=== PATIENT | female | born 1960 | race Two or more races ===

== ENCOUNTER 2018-12-22 20:04 | Inpatient (IN) | payer SELFPAY ==
[~2018-12-22] VITALS: Ht 160 cm; Wt 77.4 kg
[2018-12-22 22:33] LABS: Basophils # (auto) 0 uL; Basophils % (auto) 0.4 % (0.0-2.0); Eosinophils # (auto) 0 uL; Eosinophils % (auto) 0.4 % (0.0-7.0); Hematocrit 32.9 % (36.0-46.0); Hemoglobin 10.8 g/dL (12.2-16.2); Lymphocytes # (auto) 1.4 uL; Lymphocytes % (auto) 13.1 % (10.0-50.0); Mean Corpuscular Hemoglobin 28.4 pg (28.0-32.0); Mean Corpuscular Hgb Conc. 32.9 g/dL (32.0-36.0); Mean Corpuscular Volume 86.2 fL (80.0-100.0); Monocytes # (auto) 0.5 uL; Monocytes % (auto) 4.8 % (0.0-12.0); Neutrophils # (auto) 8.6 uL; Neutrophils % (auto) 81.3 % (37.0-80.0); Platelet Count (auto) 264 10^3/uL (140-450); Red Blood Cells 3.82 10^6/uL (4.0-5.20); Red Cell Distribution Width 14.9 % (11.8-14.3); White Blood Cell 10.5 10^3/uL (4.4-10.8)
[2018-12-22 22:44] LABS: Anion Gap 2 (5-15); Blood Urea Nitrogen 34 mg/dL (7-18); Calcium 8.2 mg/dL (8.5-10.1); Carbon Dioxide 25 mmol/L (21-32); Chloride 114 mmol/L (98-107); Glucose 123 mg/dL (74-106); Potassium 4.7 mmol/L (3.5-5.1); Sodium 141 mmol/L (136-145)
[2018-12-22 22:52] LABS: Alanine Aminotransferase 130 U/L (13-56); Alkaline Phosphatase 177 U/L (45-117); Amylase 27 U/L (25-115); Aspartate Aminotransferase 36 U/L (15-37); BUN/Creatinine Ratio 58.6; Bilirubin, Total 0.5 mg/dL (0.2-1.0); GFR African American 137 mL/min; GFR Non-African American 113 mL/min; Lipase 61 U/L (73-393); Total Protein 6.3 g/dL (6.4-8.2)
[2018-12-23] MEDS ORDERED: PANTOPRAZOLE 40 MG/10 ML VIAL IV ONE (00:15)
[2018-12-23] MEDS ORDERED: ONDANSETRON HCL 4 MG/2 ML VIAL IV PRN (00:45)
[2018-12-23] MEDS: SODIUM CHLORIDE 0.9% 1,000 ML IV SCH ×2 (01:00→14:09)
[2018-12-23 01:36] LABS: Hematocrit 32.5 % (36.0-46.0); Hemoglobin 10.7 g/dL (12.2-16.2)
[2018-12-23] MEDS ORDERED: PANTOPRAZOLE 40 MG/10 ML VIAL IV SCH (07:30)
--- NOTE | 2018-12-23 16:33 | NUR ---
Med-surg admit from ER [facility] admitted to Medsurg unit after SBAR received. Patient oriented to Marleny Duque, primary RN, unit, room, bed, and unit policies regarding patient care and visiting hours. Patient placed on bedside oxygen, weighed by bed scale and encouraged to call if they need something. All questions and concerns addressed, patient verbalized understanding.
[2018-12-23 17:00] VITALS: BP 104/49
--- NOTE | 2018-12-23 19:10 | NUR ---
Patient comfortably resting, no s/s of distress/sob noted/stated. Care endorsed to NOC RN.
--- NOTE | 2018-12-23 19:43 | NUR ---
Opening Shift Note Assumed care of patient, awake and alert. No S/S of distress/SOB or pain. Pt is currently laying in bed with the rails up x2. The bed is locked in the lowest position and the call light is within reach. Instructed on POC and to call for assist as needed. Pt has a 20ga IV in the left AC that flushes without discomfort. Will continue to monitor.
[2018-12-23] MEDS: PANTOPRAZOLE 40 MG/10 ML VIAL IV SCH (21:40)
[2018-12-23 21:53] VITALS: BP 105/54
[2018-12-24] VITALS (7 sets, daily range): BP systolic 101–114; BP diastolic 51–77
[2018-12-24] MEDS: SODIUM CHLORIDE 0.9% 1,000 ML IV SCH (03:40)
[2018-12-24 07:08] LABS: Basophils # (auto) 0.1 uL; Basophils % (auto) 1.9 % (0.0-2.0); Eosinophils # (auto) 0.2 uL; Eosinophils % (auto) 3.5 % (0.0-7.0); Hematocrit 25.9 % (36.0-46.0); Hemoglobin 8.8 g/dL (12.2-16.2); Lymphocytes # (auto) 1.6 uL; Lymphocytes % (auto) 33.8 % (10.0-50.0); Mean Corpuscular Hemoglobin 29.2 pg (28.0-32.0); Mean Corpuscular Volume 85.9 fL (80.0-100.0); Monocytes # (auto) 0.4 uL; Monocytes % (auto) 8.7 % (0.0-12.0); Neutrophils # (auto) 2.5 uL; Neutrophils % (auto) 52.1 % (37.0-80.0); Platelet Count (auto) 219 10^3/uL (140-450); Red Blood Cells 3.02 10^6/uL (4.0-5.20); Red Cell Distribution Width 14.8 % (11.8-14.3); White Blood Cell 4.8 10^3/uL (4.4-10.8)
[2018-12-24 07:10] LABS: INR 0.96 (0.9-1.15); Prothrombin Time 10.3 sec (9.27-12.13)
[2018-12-24 07:16] LABS: Albumin 2.8 g/dL (3.4-5.0); Bilirubin, Direct 0.4 mg/dL (0-0.2); Bilirubin, Total 0.6 mg/dL (0.2-1.0); Magnesium 2.1 mg/dL (1.6-2.6); Total Protein 5.8 g/dL (6.4-8.2)
[2018-12-24 07:22] LABS: BUN/Creatinine Ratio 32.7; Calcium 8.4 mg/dL (8.5-10.1); Potassium 3.7 mmol/L (3.5-5.1)
[2018-12-24] MEDS: PANTOPRAZOLE 40 MG/10 ML VIAL IV SCH (09:55)
--- NOTE | 2018-12-24 13:20 | NUR ---
Patient down to OR for procedure.
[2018-12-24] MEDS ORDERED: diphenhdrAMINE HCL 50 MG/1 ML VL ONE (13:27)
[2018-12-24] MEDS ORDERED: LIDOCAINE VISCOUS 2% 15ML UD ONE (13:27)
[2018-12-24] MEDS: fentaNYL CITRATE 100 MCG/2 ML VL ONE ×2 (13:29→13:32)
[2018-12-24] MEDS: MIDAZOLAM HCL 5 MG/ML-1ML VIAL ONE ×2 (13:29→13:32)
--- NOTE | 2018-12-24 14:22 | NUR ---
Patient back to med surg floor.
--- NOTE | 2018-12-24 20:00 | NUR ---
Patient c/o of right lower pain, patient states " this pain is new started right after dinner" Patient will notify me if pain becomes severe. Will continue to monitor. Addendum: 12/25/18 at 0024 by Marleny Duque RN Patient c/o pain escalating. No active orders for pain medication. [facility] Hospitalist. Provided patient with a heating pad. Will continue to monitor.
[2018-12-24] MEDS: PANTOPRAZOLE 40 MG TAB PO SCH (22:07)
--- NOTE | 2018-12-25 01:35 | NUR ---
BILLY Conte gave orders for 2mg morphine IV once, Tylenol 500mg Q6h prn. Orders read back and verified.
[2018-12-25] MEDS ORDERED: MORPHINE SULF INJ 2 MG/ML SYRINGE 1ML IV ONE (01:45)
[2018-12-25] MEDS ORDERED: ACETAMINOPHEN 500 MG TAB PO PRN (01:45)
[2018-12-25] MEDS: SODIUM CHLORIDE 0.9% 1,000 ML IV SCH ×2 (01:57→06:05)
--- NOTE | 2018-12-25 03:30 | NUR ---
HANDOFF: Received report from INDIRA Cavanaugh. Assumed care of patient. Patient sleeping. Bed in lowest position, rails x2 up and call light within reach.
[2018-12-25 05:11] VITALS: BP 117/60
[2018-12-25 06:22] LABS: Hematocrit 25.6 % (36.0-46.0); Hemoglobin 8.5 g/dL (12.2-16.2)
[2018-12-25 06:35] LABS: Albumin 2.7 g/dL (3.4-5.0)
[2018-12-25 06:39] LABS: Bilirubin, Direct 0.3 mg/dL (0-0.2); Bilirubin, Total 0.4 mg/dL (0.2-1.0); Total Protein 5.6 g/dL (6.4-8.2)
[2018-12-25 09:00] VITALS: BP 120/62
[2018-12-25] MEDS: PANTOPRAZOLE 40 MG TAB PO SCH (10:33)
[2018-12-25 13:00] VITALS: BP 106/47
[2018-12-25 14:40] VITALS: BP 106/47
--- NOTE | 2018-12-25 15:36 | NUR ---
DISCHARGE: Discharge instructions given as ordered. Encourage to follow up with PMD as instructed. All questions and concerns addressed. Patient verbalized understanding. Medication reconciliation form completed and copy given to patient. IV removed with catheter intact, pressure dressing applied. Patient walked to vehicle with all personal belongings, accompanied by staff and family member. No distress noted at time of departure.
== END 2018-12-25 16:59 | disposition home or self-care (01) | DRG 444 ==
LOC: EDBD 20:04 → ER 20:10 → EDSEX 20:10 → OVERFLOW 12-23 00:42 → WEST WING 12-23 16:30
PROVIDERS: ADMIT Nurse Practitioner; ATTEND Internal Medicine
PROC: 0DB68ZX Excision of Stomach, Via Natural or Artificial Opening Endoscopic, Diagnostic (ICD-10-PCS; principal; 2018-12-24 13:21)
DX: K80.20 Calculus of gallbladder without cholecystitis without obstruction (principal); K29.71 Gastritis, unspecified, with bleeding; K29.81 Duodenitis with bleeding; D64.9 Anemia, unspecified; K83.8 Other specified diseases of biliary tract; K20.9 Esophagitis, unspecified
CPT/HCPCS: 36415; 71045; 74176; 74181; 76705; 80048; 80053; 80061; 80076; 82150; 83605; 83690; 83735; 84484; 85014; 85018; 85025; 85610; 85730; 86850; 86900; 86901; 87040; 96374; 96376; A6257; C9113; G0378; J2250; J2405

== ENCOUNTER 2019-03-10 17:59 | Emergency (ER) | payer SELFPAY ==
[~2019-03-10] VITALS: Ht 160 cm; Wt 70.3 kg
[2019-03-10 18:23] VITALS: BP 143/65
[2019-03-10] MEDS ORDERED: cefTRIAXone W LIDOCAINE 1 GM IM IM ONE (21:15)
[2019-03-10] MEDS ORDERED: cefTRIAXone SOD 1,000 MG VL ONE (21:21)
== END 2019-03-10 23:08 | disposition home or self-care (01) ==
LOC: ER 17:59
DX: J02.9 Acute pharyngitis, unspecified (principal); M25.512 Pain in left shoulder
CPT/HCPCS: 73030; 96372; 99283; J0696

== ENCOUNTER 2019-07-26 12:32 | Emergency (ER) | payer MEDICAID ==
[~2019-07-26] VITALS: Ht 160 cm; Wt 77.1 kg
[2019-07-26 13:46] LABS: Basophils # (auto) 0.1 uL; Basophils % (auto) 0.8 % (0.0-2.0); Eosinophils # (auto) 0.2 uL; Eosinophils % (auto) 2.1 % (0.0-7.0); Hematocrit 43.4 % (36.0-46.0); Hemoglobin 14.3 g/dL (12.2-16.2); Lymphocytes # (auto) 2.2 uL; Lymphocytes % (auto) 30.5 % (10.0-50.0); Mean Corpuscular Volume 84.8 fL (80.0-100.0); Monocytes # (auto) 0.5 uL; Monocytes % (auto) 6.9 % (0.0-12.0); Neutrophils # (auto) 4.4 uL; Neutrophils % (auto) 59.7 % (37.0-80.0); Platelet Count (auto) 303 10^3/uL (140-450); Red Blood Cells 5.12 10^6/uL (4.0-5.20); Red Cell Distribution Width 14.4 % (11.8-14.3); White Blood Cell 7.3 10^3/uL (4.4-10.8)
[2019-07-26 14:00] LABS: Albumin 3.4 g/dL (3.4-5.0); Calcium 9.1 mg/dL (8.5-10.1); Potassium 3.8 mmol/L (3.5-5.1)
[2019-07-26 14:06] LABS: BUN/Creatinine Ratio 14.3; Bilirubin, Total 0.3 mg/dL (0.2-1.0); Total Protein 7.7 g/dL (6.4-8.2)
[2019-07-26 15:48] VITALS: BP 153/60
[2019-07-26 16:13] LABS: Urine Bacteria NONE SEEN /hpf (None Seen); Urine Blood Negative /uL (Negative); Urine Mucus FEW (None Seen); Urine Specific Gravity 1.024 (1.001-1.035); Urine WBC 10 /hpf (0 - 5)
== END 2019-07-26 16:57 | disposition home or self-care (01) ==
LOC: ER 12:34
DX: K80.20 Calculus of gallbladder without cholecystitis without obstruction (principal); N39.0 Urinary tract infection, site not specified; R11.2 Nausea with vomiting, unspecified
CPT/HCPCS: 36415; 74176; 80053; 81001; 85025

== ENCOUNTER 2020-05-11 17:39 | Inpatient (IN) | payer MEDICAID ==
[~2020-05-11] VITALS: Ht 160 cm; Wt 84.1 kg
[2020-05-11 18:43] LABS: Urine Bacteria FEW /hpf (None Seen); Urine Blood Negative /uL (Negative); Urine Hyaline Cast FEW /lpf (0 - 2); Urine Mucus MODERATE (None Seen); Urine WBC 42 /hpf (0 - 5)
[2020-05-11 19:04] LABS: Basophils # (auto) 0 10 ^3/uL (0-0.2); Basophils % (auto) 0.6 % (0.0-2.0); Eosinophils # (auto) 0.1 10 ^3/uL (0-0.8); Hematocrit 44.6 % (36.0-46.0); Hemoglobin 14.3 g/dL (12.2-16.2); Lymphocytes # (auto) 1.8 10 ^3/uL (0.4-5.4); Lymphocytes % (auto) 28.8 % (10.0-50.0); Mean Corpuscular Hemoglobin 27.5 pg (28.0-32.0); Mean Corpuscular Hgb Conc. 32.1 g/dL (32.0-36.0); Mean Corpuscular Volume 85.7 fL (80.0-100.0); Monocytes # (auto) 0.4 10 ^3/uL (0-1.3); Monocytes % (auto) 7.3 % (0.0-12.0); Neutrophils # (auto) 3.8 10 ^3/uL (1.6-8.6); Neutrophils % (auto) 61.3 % (37.0-80.0); Nucleated Red Blood Cells % 0.1 %; Platelet Count (auto) 232 10^3/uL (140-450); Red Blood Cells 5.21 10^6/uL (4.0-5.20); Red Cell Distribution Width 15.8 % (11.8-14.3); White Blood Cell 6.2 10^3/uL (4.4-10.8)
[2020-05-11 19:38] LABS: Albumin 3.7 g/dL (3.4-5.0); Amylase 31 U/L (25-115); Anion Gap 6 (5-15); Aspartate Aminotransferase 289 U/L (15-37); BUN/Creatinine Ratio 17.1; Blood Urea Nitrogen 14 mg/dL (7-18); Calcium 9.5 mg/dL (8.5-10.1); Carbon Dioxide 26 mmol/L (21-32); Chloride 105 mmol/L (98-107); GFR African American 91 mL/min; GFR Non-African American 75 mL/min; Glucose 101 mg/dL (74-106); Lipase 52 U/L (73-393); Magnesium 2.5 mg/dL (1.6-2.6); Potassium 3.7 mmol/L (3.5-5.1); Sodium 137 mmol/L (136-145)
[2020-05-11 19:48] LABS: Alanine Aminotransferase 586 U/L (13-56); Alkaline Phosphatase 295 U/L (45-117); Bilirubin, Total 2.3 mg/dL (0.2-1.0)
[2020-05-11] MEDS ORDERED: cefTRIAXone 1GM/50ML D5W 50 ML IV ONE ×2 (21:45→22:45)
[2020-05-11] MEDS ORDERED: MORPHINE SULF INJ 2 MG/ML SYRINGE 1ML IV PRN (21:45)
[2020-05-11] MEDS ORDERED: ONDANSETRON HCL 4 MG/2 ML VIAL IV PRN (21:45)
[2020-05-11] MEDS: SODIUM CHLORIDE 0.9% 1,000 ML IV SCH (22:23)
[2020-05-11] MEDS: cefTRIAXone 1GM/50ML D5W 50 ML IV SCH (22:35)
[2020-05-12 08:22] LABS: Basophils # (auto) 0.1 10 ^3/uL (0-0.2); Basophils % (auto) 1.4 % (0.0-2.0); Eosinophils # (auto) 0.2 10 ^3/uL (0-0.8); Eosinophils % (auto) 2.9 % (0.0-7.0); Hematocrit 41.7 % (36.0-46.0); Hemoglobin 13.5 g/dL (12.2-16.2); Lymphocytes # (auto) 1.6 10 ^3/uL (0.4-5.4); Lymphocytes % (auto) 29.1 % (10.0-50.0); Mean Corpuscular Hemoglobin 27.9 pg (28.0-32.0); Mean Corpuscular Hgb Conc. 32.5 g/dL (32.0-36.0); Mean Corpuscular Volume 85.8 fL (80.0-100.0); Monocytes # (auto) 0.4 10 ^3/uL (0-1.3); Monocytes % (auto) 8.1 % (0.0-12.0); Neutrophils # (auto) 3.2 10 ^3/uL (1.6-8.6); Neutrophils % (auto) 58.5 % (37.0-80.0); Nucleated Red Blood Cells % 0.1 %; Platelet Count (auto) 203 10^3/uL (140-450); Red Blood Cells 4.85 10^6/uL (4.0-5.20); Red Cell Distribution Width 15.7 % (11.8-14.3); White Blood Cell 5.5 10^3/uL (4.4-10.8)
--- NOTE | 2020-05-12 11:15 | NUR ---
Med/Surg admit from ER [facility] admitted to med/surg unit after verbal report received from INDIRA Torres, ER. Patient oriented to Reina Reilly, primary RN, unit, room, bed, and unit policies regarding patient care and visiting hours. Patient placed on bedside oxygen, weighed by bedscale and encouraged to call if they need something. IV to right forearm, 20 gauge, patent and infusing 0.9% NS @ 75 ml/hr. All questions and concerns addressed, patient verbalized understanding. Bed locked, in lowest position, call light within reach, will continue to monitor Q 1 hour and PRN.
[2020-05-12 11:22] LABS: INR 1.03 (0.9-1.15)
[2020-05-12] MEDS: SODIUM CHLORIDE 0.9% 1,000 ML IV SCH (12:18)
[2020-05-12 13:19] VITALS: BP 137/75
[2020-05-12 13:20] VITALS: BP 157/68
[2020-05-12] MEDS: metroNIDAZOLE 500MG/100ML 100 ML IV SCH ×2 (14:10→22:00)
--- NOTE | 2020-05-12 16:33 | NUR ---
GI Dr Edinson De Jesus at bedside for rounds, new orders for ERCP with [facility]. Orders followed through. Patient updated on plan of care, verbalized understanding.
[2020-05-12 17:06] VITALS: BP 128/79
--- NOTE | 2020-05-12 17:06 | NUR ---
[facility] Call received from Dr Venessa Willams for GI consult. New orders received for In-House COVID. Verbalized will be in tomorrow to see patient. Patient updated on plan of care, verbalized understanding.
--- NOTE | 2020-05-12 17:30 | NUR ---
IN-HOUSE COVID In-House COVID collected and taken to lab.
--- NOTE | 2020-05-12 19:25 | NUR ---
Care endorsed to INDIRA Gil, night nurse.
[2020-05-12 21:52] VITALS: BP 165/79
[2020-05-12] MEDS: cefTRIAXone 1GM/50ML D5W 50 ML IV SCH (21:58)
[2020-05-13] MEDS: SODIUM CHLORIDE 0.9% 1,000 ML IV SCH ×3 (00:25→22:43)
[2020-05-13 05:42] VITALS: BP 127/66
[2020-05-13] MEDS: metroNIDAZOLE 500MG/100ML 100 ML IV SCH ×3 (05:59→22:31)
[2020-05-13 07:31] LABS: Basophils # (auto) 0 10 ^3/uL (0-0.2); Basophils % (auto) 0.8 % (0.0-2.0); Eosinophils # (auto) 0.2 10 ^3/uL (0-0.8); Eosinophils % (auto) 3.2 % (0.0-7.0); Hemoglobin 13.7 g/dL (12.2-16.2); Lymphocytes # (auto) 1.6 10 ^3/uL (0.4-5.4); Lymphocytes % (auto) 33.6 % (10.0-50.0); Mean Corpuscular Hemoglobin 28.5 pg (28.0-32.0); Mean Corpuscular Hgb Conc. 33.4 g/dL (32.0-36.0); Mean Corpuscular Volume 85.3 fL (80.0-100.0); Monocytes # (auto) 0.4 10 ^3/uL (0-1.3); Monocytes % (auto) 8.6 % (0.0-12.0); Neutrophils # (auto) 2.6 10 ^3/uL (1.6-8.6); Neutrophils % (auto) 53.8 % (37.0-80.0); Nucleated Red Blood Cells % 0.1 %; Platelet Count (auto) 216 10^3/uL (140-450); Red Blood Cells 4.81 10^6/uL (4.0-5.20); Red Cell Distribution Width 15.6 % (11.8-14.3); White Blood Cell 4.8 10^3/uL (4.4-10.8)
[2020-05-13 07:45] LABS: BUN/Creatinine Ratio 10.9; Calcium 8.9 mg/dL (8.5-10.1); Potassium 3.8 mmol/L (3.5-5.1)
--- NOTE | 2020-05-13 08:00 | NUR ---
Opening Shift Note Assumed care of patient, awake, alert and oriented X4. No S/S of distress/SOB or pain. IV to right forearm, 20 gauge, patent and infusing 0.9% NS @ 75 ml/hr. Instructed on POC and to call for assist PRN, verbalized understanding. Bed locked, in lowest position, call light within reach, will continue to monitor for changes Q1hr and PRN.
[2020-05-13 09:00] VITALS: BP 152/81
--- NOTE | 2020-05-13 10:30 | NUR ---
IV Right forearm IV discontinued to redness and irritation, catheter intact, dressing applied. IV established to left forearm, 20 gauge, with clean technique, infusing 0.9% NS @ 75 ml/hr.
[2020-05-13 12:46] VITALS: BP 131/77
--- NOTE | 2020-05-13 12:58 | NUR ---
ROUNDS Dr Mello at bedside for rounds. No new orders received at this time. Patient updated on plan of care, verbalized understanding.
[2020-05-13 16:35] VITALS: BP 128/79
--- NOTE | 2020-05-13 18:58 | NUR ---
Care endorsed to INDIRA Chacon, night nurse.
--- NOTE | 2020-05-13 19:15 | NUR ---
Opening Shift Note Assumed care of patient, awake, alert and oriented X4. No S/S of distress/SOB or pain. IV to right forearm, 20 gauge, patent and infusing 0.9% NS @ 75 ml/hr. Instructed on POC and to call for assist PRN, verbalized understanding. Bed locked, in lowest position, rails up x2, call light within reach, will continue to monitor for changes Q1hr and PRN.
[2020-05-13 21:59] VITALS: BP 138/75
[2020-05-13] MEDS: cefTRIAXone 1GM/50ML D5W 50 ML IV SCH (22:31)
--- NOTE | 2020-05-14 00:35 | NUR ---
Pt sleeping well. Maintained a safe and quiet environment. Bed in lowest and locked position with rails up x2. call light within reach of pt.
--- NOTE | 2020-05-14 01:40 | NUR ---
during hourly rounding on pt pt c/o mild nausea and antinausea medication was administered.
--- NOTE | 2020-05-14 04:57 | NUR ---
Pt sleeping well. Maintained a safe and quiet environment. Bed in lowest and locked position with rails up x2. call light within reach of pt.
[2020-05-14 05:40] VITALS: BP 124/74
[2020-05-14] MEDS: metroNIDAZOLE 500MG/100ML 100 ML IV SCH ×3 (05:45→22:32)
[2020-05-14 05:55] LABS: Basophils # (auto) 0 10 ^3/uL (0-0.2); Basophils % (auto) 0.6 % (0.0-2.0); Eosinophils # (auto) 0.2 10 ^3/uL (0-0.8); Eosinophils % (auto) 3.6 % (0.0-7.0); Hematocrit 41.3 % (36.0-46.0); Hemoglobin 13.3 g/dL (12.2-16.2); Lymphocytes # (auto) 1.5 10 ^3/uL (0.4-5.4); Lymphocytes % (auto) 31.8 % (10.0-50.0); Mean Corpuscular Hgb Conc. 32.3 g/dL (32.0-36.0); Mean Corpuscular Volume 86.8 fL (80.0-100.0); Monocytes # (auto) 0.4 10 ^3/uL (0-1.3); Monocytes % (auto) 8.7 % (0.0-12.0); Neutrophils # (auto) 2.5 10 ^3/uL (1.6-8.6); Neutrophils % (auto) 55.3 % (37.0-80.0); Nucleated Red Blood Cells % 0.1 %; Platelet Count (auto) 204 10^3/uL (140-450); Red Blood Cells 4.76 10^6/uL (4.0-5.20); Red Cell Distribution Width 15.7 % (11.8-14.3); White Blood Cell 4.6 10^3/uL (4.4-10.8)
[2020-05-14 06:19] LABS: Potassium 3.6 mmol/L (3.5-5.1)
[2020-05-14 06:25] LABS: Calcium 8.8 mg/dL (8.5-10.1)
--- NOTE | 2020-05-14 08:15 | NUR ---
Patient ambulated to bathroom and back to bed. Patient stable with no complaint of pain or discomfort.
[2020-05-14 09:20] VITALS: BP 122/58
--- NOTE | 2020-05-14 09:55 | NUR ---
Patient sitting on side of bed, talking on phone. Patient stable at this time.
[2020-05-14 13:00] VITALS: BP 157/85
--- NOTE | 2020-05-14 13:45 | NUR ---
Patient sitting on side of bed with no complaint of pain or discomfort. Scheduled IV abx given per order. Patient stable at this time.
--- NOTE | 2020-05-14 14:50 | NUR ---
Patient taken to OR in stable condition.
[2020-05-14] MEDS ORDERED: fentaNYL CITRATE 100 MCG/2 ML VL ONE ×2 (15:06→16:48)
[2020-05-14] MEDS ORDERED: MIDAZOLAM HCL 1MG/1ML-2 ML VIAL ONE (15:06)
[2020-05-14] MEDS ORDERED: PROPOFOL 10 MG/ML 20 ML IV ONE (15:06)
[2020-05-14] MEDS ORDERED: ONDANSETRON HCL 4 MG/2 ML VIAL IV PRN (15:15)
[2020-05-14] MEDS ORDERED: fentaNYL CITRATE 100 MCG/2 ML VL IV PRN (15:15)
[2020-05-14] MEDS ORDERED: ePHEDrine SULFATE 50 MG/ML AMP IV PRN (15:15)
[2020-05-14] MEDS ORDERED: hydrALAZINE HCL 20 MG/ML VL IV PRN (15:15)
--- NOTE | 2020-05-14 15:26 | NUR ---
Nutrition Assessment Notes please see attached link for complete assessment [employer] needs ABW 67 [id number] kcals (23-25kcal/kgABW),Est Protein needs: 67-73 gms/day (1.0-1.1 gm/kgABW). Will continue to monitor and reassess prn. Addendum: 05/14/20 at [address] Amended: Links added.
[2020-05-14] MEDS ORDERED: IOHEXOL 300 MG/ML 100ML BOTTLE IJ ONE (16:05)
[2020-05-14] MEDS: SODIUM CHLORIDE 0.9% 1,000 ML IV SCH ×2 (16:25→19:00)
--- NOTE | 2020-05-14 17:35 | NUR ---
Patient returned to unit in stable condition.
[2020-05-14] MEDS: cefTRIAXone 1GM/50ML D5W 50 ML IV SCH (21:02)
[2020-05-14 22:00] VITALS: BP 135/73
[2020-05-14] MEDS ORDERED: ACETAMINOPHEN 325 MG TAB PO PRN (23:45)
[2020-05-15 05:00] VITALS: BP 129/71
[2020-05-15] MEDS: metroNIDAZOLE 500MG/100ML 100 ML IV SCH (05:17)
[2020-05-15] MEDS: SODIUM CHLORIDE 0.9% 1,000 ML IV SCH ×2 (06:35→11:36)
[2020-05-15 06:42] LABS: Basophils # (auto) 0 10 ^3/uL (0-0.2); Basophils % (auto) 0.1 % (0.0-2.0); Eosinophils # (auto) 0.1 10 ^3/uL (0-0.8); Eosinophils % (auto) 1.1 % (0.0-7.0); Hematocrit 42.4 % (36.0-46.0); Hemoglobin 13.8 g/dL (12.2-16.2); Lymphocytes # (auto) 1.3 10 ^3/uL (0.4-5.4); Lymphocytes % (auto) 18.1 % (10.0-50.0); Mean Corpuscular Hemoglobin 28.1 pg (28.0-32.0); Mean Corpuscular Hgb Conc. 32.5 g/dL (32.0-36.0); Mean Corpuscular Volume 86.5 fL (80.0-100.0); Monocytes # (auto) 0.4 10 ^3/uL (0-1.3); Monocytes % (auto) 5.8 % (0.0-12.0); Neutrophils # (auto) 5.4 10 ^3/uL (1.6-8.6); Neutrophils % (auto) 74.9 % (37.0-80.0); Nucleated Red Blood Cells % 0.2 %; Platelet Count (auto) 204 10^3/uL (140-450); Red Cell Distribution Width 15.4 % (11.8-14.3); White Blood Cell 7.2 10^3/uL (4.4-10.8)
[2020-05-15 06:57] LABS: Potassium 3.4 mmol/L (3.5-5.1)
[2020-05-15 07:08] LABS: Albumin 3.2 g/dL (3.4-5.0); BUN/Creatinine Ratio 12.3; Calcium 8.5 mg/dL (8.5-10.1); Total Protein 6.7 g/dL (6.4-8.2)
--- NOTE | 2020-05-15 08:15 | NUR ---
Patient resting with eyes closed. No distress noted at this time. Patient stable.
[2020-05-15 09:48] VITALS: BP 133/65
--- NOTE | 2020-05-15 11:39 | NUR ---
Patient resting comfortably in bed with no complaint of pain. Started new IVF bag at this time. Patient stable.
--- NOTE | 2020-05-15 12:40 | NUR ---
Patient stable with Dr. Pratt at bedside.
[2020-05-15 12:57] VITALS: BP 134/69
[2020-05-15] MEDS ORDERED: POTASSIUM EFFERVESENT TAB 25 MEQ PO ONE (14:15)
[2020-05-15 16:52] VITALS: BP 137/86
--- NOTE | 2020-05-15 19:10 | NUR ---
Opening Shift Note Assumed care of patient after shift report given by INDIRA Mehta. Pt awake, AAOx4. No S/S of distress/SOB or pain. Instructed pt on POC and to call for assist PRN, pt verbalized understanding. Bed locked, in lowest position, rails up x2, call light within reach, will continue to monitor for changes Q1hr and PRN.
[2020-05-15] MEDS: cefTRIAXone 1GM/50ML D5W 50 ML IV SCH (21:53)
[2020-05-15] MEDS: metroNIDAZOLE 500 MG TAB PO SCH (21:53)
[2020-05-15 22:00] VITALS: BP 146/78
--- NOTE | 2020-05-16 02:25 | NUR ---
pt asleep, resting comfortably in bed. no s/s of distress or pain noted at this time. will continue to monitor Q1H and PRN
[2020-05-16] MEDS: SODIUM CHLORIDE 0.9% 1,000 ML IV SCH ×2 (04:20→17:40)
[2020-05-16 05:00] VITALS: BP 139/87
[2020-05-16] MEDS: metroNIDAZOLE 500 MG TAB PO SCH ×3 (05:53→22:13)
[2020-05-16 06:33] LABS: Potassium 3.7 mmol/L (3.5-5.1)
[2020-05-16 06:39] LABS: Albumin 3.3 g/dL (3.4-5.0); BUN/Creatinine Ratio 17.2; Calcium 8.7 mg/dL (8.5-10.1)
--- NOTE | 2020-05-16 07:21 | NUR ---
End of shift report given to day shift RNJanine.
[2020-05-16 08:00] VITALS: BP 135/88
[2020-05-16 08:20] VITALS: BP 135/88
--- NOTE | 2020-05-16 08:20 | NUR ---
Patient resting comfortably in bed with no distress noted. Denies any pain at this time. Patient stable.
--- NOTE | 2020-05-16 09:40 | NUR ---
Patient stable with Dr. Pratt at bedside. Denies any pain.
--- NOTE | 2020-05-16 10:35 | NUR ---
Received call from Dr. Bean. Verified that patient does not want surgery (lap tracey).
[2020-05-16 11:46] VITALS: BP 158/82
--- NOTE | 2020-05-16 12:05 | NUR ---
Patient resting comfortably in bed with no distress noted and no complaint of pain. Patient stable at this time.
--- NOTE | 2020-05-16 14:22 | NUR ---
Scheduled po abx given per order. Patient sitting in bed with no distress noted; denies any pain at this time. Patient stable.
[2020-05-16 17:01] VITALS: BP 155/84
--- NOTE | 2020-05-16 17:40 | NUR ---
Patient sitting on side of bed with no distress noted. Started new IVF bag. Patient stable at this time.
--- NOTE | 2020-05-16 18:50 | NUR ---
Patient stable throughout shift.
--- NOTE | 2020-05-16 20:05 | NUR ---
open note assumed care of pt, upon entering room pt awake, alert and oriented x4. pt on room air, no respiratory distress noted or expressed. pt denies any pain at this time. pt oriented to this nurse, updated on plan of care. pt bed locked, low and 2x rails up. call light in reach, this nurse to round q1hr and prn. pt encouraged to call as needed.
[2020-05-16 22:00] VITALS: BP 153/69
[2020-05-16] MEDS: cefTRIAXone 1GM/50ML D5W 50 ML IV SCH (22:13)
[2020-05-17 05:00] VITALS: BP 114/72
[2020-05-17] MEDS: metroNIDAZOLE 500 MG TAB PO SCH ×2 (05:47→15:15)
--- NOTE | 2020-05-17 07:45 | NUR ---
opening note assumed care of patient from NOC RN. Patient is AOX4 no s/s of distress noted. Bed is in lowest locked position, side rails up x2, call light is with in reach. Updated patient on plan of care and patient verbalized understanding. Will continue to monitor q1hr and PRN.
[2020-05-17 08:00] VITALS: BP 122/72
[2020-05-17 12:00] VITALS: BP 132/86
--- NOTE | 2020-05-17 12:16 | NUR ---
Nutrition Followup Note Wt 84.1kg Pt was with nurse at time of rounds. Pt diet advanced to regular with adequate po intake aeb pt with 81% avg po intake x2 days per RN note. Pt with no new distress, pt refusing cholecystectomy per MD note. [employer] needs ABW 67 [id number] kcals (23-25kcal/kgABW),Est Protein needs: 67-73 gms/day (1.0-1.1 gm/kgABW). Will continue to monitor and reassess prn. Labs: Alb 3.3L BM: Pt with 1 BM 05/15 per RN note Skin: BS 19 low risk, full details in director of home care hospice note. PES: Altered nutrition related lab values r.t current chronic medical condition aeb elev LFTs hyperbil Decreased nutrient needs r/t adiposity aeb pt`s high BMI of 32.6 kgm2 Comments 1)pt po intake >75% 2) refer to [facility] on DC 3) continue current plan of care Expected Outcomes/Goals: pt will have improved labs F/u mod 3-5 days
[2020-05-17] MEDS ORDERED: AMLO10TA13 PO (14:17)
--- NOTE | 2020-05-17 14:19 | NUR ---
Received call from Recieved call from Dr. Pratt. Per MD patient can be D/C at 1700 today. Will follow through.
[2020-05-17 16:51] VITALS: BP 130/87
[2020-05-17 17:29] VITALS: BP 138/87
--- NOTE | 2020-05-17 18:55 | NUR ---
Discharge note Discharge instructions given as ordered. Encourage to follow up with PMD as instructed. All questions and concerns addressed. Patient verbalized understanding. IV removed with catheter intact, pressure dressing applied. Telemetry unit returned to ICU. Patient taken to vehicle via wheelchair with all personal belongings, accompanied by staff member. No distress noted at time of departure.
== END 2020-05-17 18:55 | disposition home or self-care (01) ==
LOC: ER 17:39 → OVERFLOW 17:40 → WEST WING 05-12 10:58
PROVIDERS: ADMIT Nurse Practitioner; ATTEND Internal Medicine Nephrology
PROC: BF101ZZ Fluoroscopy of Bile Ducts using Low Osmolar Contrast (ICD-10-PCS; 2020-05-14)
PROC: 0FC98ZZ Extirpation of Matter from Common Bile Duct, Via Natural or Artificial Opening Endoscopic (ICD-10-PCS; principal; 2020-05-14 16:05)
DX: K80.70 Calculus of gallbladder and bile duct without cholecystitis without obstruction (principal); K85.90 Acute pancreatitis without necrosis or infection, unspecified; Z80.3 Family history of malignant neoplasm of breast; Z80.49 Family history of malignant neoplasm of other genital organs; Z87.11 Personal history of peptic ulcer disease; Z20.828 Contact with and (suspected) exposure to other viral communicable diseases; I10 Essential (primary) hypertension; Z53.20 Procedure and treatment not carried out because of patient's decision for unspecified reasons
CPT/HCPCS: 36415; 71045; 74018; 74176; 74181; 76000; 80048; 80053; 81001; 82150; 83690; 83735; 84484; 85025; 85610; 85730; 86850; 86900; 86901; 87086; 93005; G0378; J0696; J2250; J2405; J2704; J3490

== ENCOUNTER 2021-08-21 21:02 | Emergency (ER) | payer MEDICAID ==
[~2021-08-21] VITALS: Ht 160 cm; Wt 79.4 kg
[2021-08-21 22:53] LABS: Basophils # (auto) 0 10 ^3/uL (0-0.2); Basophils % (auto) 0.6 % (0.0-2.0); Eosinophils # (auto) 0.4 10 ^3/uL (0-0.8); Eosinophils % (auto) 4.8 % (0.0-7.0); Hematocrit 44.1 % (36.0-46.0); Hemoglobin 14.4 g/dL (12.2-16.2); Lymphocytes # (auto) 2.5 10 ^3/uL (0.4-5.4); Lymphocytes % (auto) 33.3 % (10.0-50.0); Mean Corpuscular Hemoglobin 27.7 pg (28.0-32.0); Mean Corpuscular Hgb Conc. 32.6 g/dL (32.0-36.0); Mean Corpuscular Volume 85.1 fL (80.0-100.0); Monocytes # (auto) 0.6 10 ^3/uL (0-1.3); Monocytes % (auto) 7.8 % (0.0-12.0); Neutrophils % (auto) 53.5 % (37.0-80.0); Nucleated Red Blood Cells % 0.1 %; Red Blood Cells 5.19 10^6/uL (4.0-5.20); Red Cell Distribution Width 14.6 % (11.8-14.3); White Blood Cell 7.5 10^3/uL (4.4-10.8)
[2021-08-21 23:09] LABS: Calcium 8.8 mg/dL (8.5-10.1); Potassium 3.7 mmol/L (3.5-5.1)
[2021-08-21 23:18] LABS: Albumin 3.4 g/dL (3.4-5.0); BUN/Creatinine Ratio 21.4; Bilirubin, Total 0.4 mg/dL (0.2-1.0); Total Protein 7.6 g/dL (6.4-8.2)
[2021-08-22 00:17] VITALS: BP 131/55
== END 2021-08-22 00:18 | disposition home or self-care (01) ==
LOC: EDBD 21:02 → ER 21:04
DX: R51.9 Headache, unspecified (principal); M79.602 Pain in left arm
CPT/HCPCS: 36415; 70450; 71045; 80053; 84484; 85025

== ENCOUNTER 2021-08-24 10:08 | Emergency (ER) | payer MEDICAID ==
[~2021-08-24] VITALS: Ht 160 cm; Wt 77.1 kg
[2021-08-24] MEDS ORDERED: ASPirin 81 mg TAB PO ONE (11:15)
[2021-08-24 11:26] LABS: Basophils # (auto) 0.1 10 ^3/uL (0-0.2); Basophils % (auto) 0.9 % (0.0-2.0); Eosinophils # (auto) 0.3 10 ^3/uL (0-0.8); Eosinophils % (auto) 3.9 % (0.0-7.0); Hematocrit 42.2 % (36.0-46.0); Hemoglobin 13.8 g/dL (12.2-16.2); Lymphocytes # (auto) 1.9 10 ^3/uL (0.4-5.4); Lymphocytes % (auto) 28.6 % (10.0-50.0); Mean Corpuscular Hemoglobin 27.9 pg (28.0-32.0); Mean Corpuscular Hgb Conc. 32.7 g/dL (32.0-36.0); Mean Corpuscular Volume 85.2 fL (80.0-100.0); Monocytes # (auto) 0.5 10 ^3/uL (0-1.3); Monocytes % (auto) 7.7 % (0.0-12.0); Neutrophils # (auto) 3.9 10 ^3/uL (1.6-8.6); Neutrophils % (auto) 58.9 % (37.0-80.0); Nucleated Red Blood Cells % 0.1 %; Red Blood Cells 4.95 10^6/uL (4.0-5.20); Red Cell Distribution Width 14.5 % (11.8-14.3); White Blood Cell 6.6 10^3/uL (4.4-10.8)
[2021-08-24 11:40] LABS: Albumin 3.3 g/dL (3.4-5.0); Calcium 8.2 mg/dL (8.5-10.1); Magnesium 2.2 mg/dL (1.6-2.6); Potassium 4.1 mmol/L (3.5-5.1)
[2021-08-24 11:44] LABS: BUN/Creatinine Ratio 22.1; Bilirubin, Total 0.2 mg/dL (0.2-1.0); Total Protein 7.1 g/dL (6.4-8.2)
[2021-08-24 13:13] VITALS: BP 144/62
== END 2021-08-24 13:20 | disposition home or self-care (01) ==
LOC: ER 10:08
DX: R00.2 Palpitations (principal); I10 Essential (primary) hypertension; R53.1 Weakness
CPT/HCPCS: 36415; 71045; 80053; 83735; 84484; 85025; 93005

== ENCOUNTER 2023-03-25 16:49 | Emergency (ER) | payer MEDICAID, OTHER ==
[~2023-03-25] VITALS: Ht 160 cm; Wt 79.5 kg
[2023-03-25 16:58] VITALS: BP 127/66
[2023-03-25] MEDS ORDERED: LISI40TA16 PO (19:48)
== END 2023-03-25 20:25 | disposition home or self-care (01) ==
LOC: ER 16:49
DX: I10 Essential (primary) hypertension (principal); K80.20 Calculus of gallbladder without cholecystitis without obstruction; K27.9 Peptic ulcer, site unspecified, unspecified as acute or chronic, without hemorrhage or perforation; Z76.0 Encounter for issue of repeat prescription